=== PATIENT | female | born 1985 | race Caucasian/White ===

== ENCOUNTER → 2018-06-29 | Outpatient (CLI) | payer OTHER ==
--- NOTE | 2018-06-29 17:31 | XCELERA REPORT ---
[address] [address] Transthoracic Echocardiogram Report Name: MEGAN COONEY Age: 33 yrs Gender: Female : 1985 Patient Status: Outpatient Patient Location: [facility] Study Date: 06/29/2018 01:04 PM Height: 65 in Weight: 170 lb BSA: 1.8 m2 Procedure: A complete two-dimensional transthoracic echocardiogram was performed (2D, M-mode, spectral and color flow Doppler). The study was technically adequate with some images being suboptimal in quality. Reason For Study: TIA Ordering Physician: ISIDRO ACUÑA Performed By: Nandini Peacock Interpretation Summary The left ventricular ejection fraction is normal. There is normal left ventricular wall thickness. The left ventricle is grossly normal size. Doppler measurements suggest normal left ventricular diastolic function Wall motion cannot be accurately commented on, but no definite regional wall motion abnormalities noted. The right ventricular systolic function is normal. The left atrial size is normal. The right atrium is normal. There is a trace amount of mitral regurgitation There is no mitral valve stenosis. No aortic regurgitation is present. There is no aortic valve stenosis There is a trace amount of tricuspid regurgitation Right ventricular systolic pressure is at the upper limits of normal The aortic root is not well visualized but is probably normal size. The inferior vena cava was not well visualized No definite cardiac source of CVA/TIA noted on this particular trans-thoracic study. Consider AXEL if clinically indicated. May consider mobile cardiac telemetry monitoring (MCT) for ruling out transient AFIB. MMode/2D Measurements & Calculations RVDd: 2.8 cm LVIDd: 4.7 cm FS: 42.0 % Ao root diam: 2.9 cm IVSd: 0.79 cm LVIDs: 2.8 cm EDV(Teich): 104.4 ml Ao root area: 6.4 cm2 LVPWd: 1.0 cm ESV(Teich): 28.3 ml EF(Teich): 72.9 % Doppler Measurements & Calculations MV E max gladys: MV dec slope: Ao V2 max: LV V1 max P.3 cm/sec 512.1 cm/sec2 98.7 cm/sec 3.7 mmHg MV A max gladys: MV dec time: 0.16 secAo max P.9 mmHgLV V1 max: 61.8 cm/sec 96.6 cm/sec MV E/A: 1.3 PA V2 max: PI end-d gladys: TR max gladys: 95.6 cm/sec 62.7 cm/sec 241.2 cm/sec PA max P.7 mmHg TR max P.3 mmHg Left Ventricle The left ventricle is grossly normal size. There is normal left ventricular wall thickness. The left ventricular ejection fraction is normal. Doppler measurements suggest normal left ventricular diastolic function. Wall motion cannot be accurately commented on, but no definite regional wall motion abnormalities noted. Right Ventricle The right ventricle is grossly normal size. There is normal right ventricular wall thickness. The right ventricular systolic function is normal. Atria The right atrium is normal. The left atrial size is normal. Interarterial septum not well visualized and not well dopplered. Cannot comment on ASD/PFO presence. Mitral Valve The mitral valve is grossly normal. There is no mitral valve stenosis. There is a trace amount of mitral regurgitation. Aortic Valve The aortic valve is grossly normal. There is no aortic valve stenosis. No aortic regurgitation is present. Tricuspid Valve The tricuspid valve is not well visualized, but is grossly normal. There is no tricuspid stenosis. There is a trace amount of tricuspid regurgitation. Right ventricular systolic pressure is at the upper limits of normal. Pulmonic Valve The pulmonic valve is not well visualized. Great Vessels The aortic root is not well visualized but is probably normal size. The inferior vena cava was not well visualized. Effusions There is no pericardial effusion. Incidental Findings No definite cardiac source of CVA/TIA noted on this particular trans-thoracic study. Consider AXEL if clinically indicated. May consider mobile cardiac telemetry monitoring (MCT) for ruling out transient AFIB. : ISIDRO ACUÑA Shyamal
== END ==
LOC: SP 12:47
PROVIDERS: ATTEND Specialist
DX: G45.9 Transient cerebral ischemic attack, unspecified (principal)
CPT/HCPCS: 93306